=== PATIENT | female | born 1965 | race Caucasian/White ===

== ENCOUNTER 2024-04-11 14:04 | Emergency (ER) | payer OTHER, MEDICAID ==
[2024-04-11 14:48] VITALS: O2SAT 100
--- NOTE | 2024-04-11 15:42 | XRAY Report ---
PROCEDURE: Knee 4+V RT INDICATIONS: Trauma TECHNIQUE: 4 views of the knee(s) were acquired. COMPARISON: None. FINDINGS: Bones: No fractures or dislocations. No suspicious bony lesions. Soft tissues: No knee joint effusion. No suspicious soft tissue calcifications or masses. IMPRESSION: No acute bony abnormality. Reviewed by: Leonel Lopez MD on 04/11/2024 3:41 PM PDT Approved by: Leonel Lopez MD on 04/11/2024 3:41 PM PDT Station ID: [id number]
[2024-04-11] MEDS: ACETAMINOPHEN 500 MG TABLET PO STA (16:07)
[2024-04-11] MEDS: KETOROLAC 30 MG/ML VIAL IM STA (16:07)
[2024-04-11] MEDS: LIDOCAINE-EPINEPH-TETRACAINE 3 ML SYRINGE TOP STA (16:08)
--- NOTE | 2024-04-11 16:08 | XRAY Report ---
PROCEDURE: Shoulder 2+V RT INDICATIONS: FOOSH TECHNIQUE: 3 views of the shoulder were acquired. COMPARISON: None. FINDINGS: Bones: No fractures or dislocations. No suspicious bony lesions. Visualized ribs appear intact. A cromioclavicular joint space narrowing with osteophytosis. Soft tissues: No suspicious soft tissue calcifications. The visualized lungs are within normal limi ts. IMPRESSION: No acute bony abnormality. Reviewed by: Leonel Lopez MD on 04/11/2024 4:07 PM PDT Approved by: Leonel Lopez MD on 04/11/2024 4:07 PM PDT Station ID: [id number]
[2024-04-11] MEDS ORDERED: ceFAZolin 2 GM VIAL ONE (17:28)
--- NOTE | 2024-04-11 17:52 | ED Physician Documentation ---
PD HPI LOWER EXT INJURY - Stated complaint Stated Complaint: RT KNEE INJ - Chief complaint Chief Complaint: Trauma Ext - Additional information Additional information: 59-year-old female presents emergency department from walk-in clinic for right knee laceration. 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 She tried to catch herself with her right arm outstretched and fell directly onto her right knee. She has full range of motion of her right knee but significant pain she did not hit her head no loss of consciousness no nausea or vomiting.Bleeding is well-controlled she is unsure if she is up-to-date with her tetanus shot and is not on any blood thinners and not immunocompromise. PD PAST MEDICAL HISTORY - Past Medical History Past Medical History: Yes Cardiovascular: High cholesterol Respiratory: Sleep apnea, CPAP use Neuro: None Endocrine/Autoimmune: None GI: None BEACH LIFEGUARD: None : None HEENT: None Psych: None Musculoskeletal: Osteoarthritis Derm: None - Past Surgical History Past Surgical History: Yes General: Cholecystectomy Derm: Skin cancer surgery - Present Medications Home Medications: Ambulatory Orders Medication Instructions Recorded Confirmed Dextroamphetamine/Amphetamine 10 mg PO BID 04/11/24 [Adderall 10 mg Tablet] cephALEXin [Keflex] 500 mg PO Q6H 5 Days #20 cap 04/11/24 traZODone [Desyrel] 50 mg PO HS 04/11/24 - Allergies Allergies/Adverse Reactions: Allergies Allergy/AdvReac Type Severity Reaction Status Date / Time No Known Drug Allergies Allergy Verified 04/11/24 14:32 - Social History Does the pt smoke?: No Smoking Status: Former smoker Does the pt drink ETOH?: Yes Does the pt have substance abuse?: Yes Substance Use and Type: CBD oil / Products - Immunizations Immunizations are current?: Yes - POLST Patient has POLST: No PD ED PE NORMAL - Vitals Vital signs reviewed: Yes - General General: Alert and oriented X 3, No acute distress, Well developed/nourished - HEENT HEENT: Atraumatic, PERRL, EOMI - Back Back: No CVA TTP - Derm Derm: Other (Large laceration over right kneecap) - Extremities Extremities: No deformity, No tenderness to palpate, Normal ROM s pain, Other (Right upper extremity: Tenderness with abduction abduction no crepitus no deformity.) - Psych Psych: Normal mood - Free text exam Free text exam: Right upper extremity: Tenderness with abduction abduction no crepitus no deformity. Right knee: Full range of motion of right knee large laceration about 9 cm in length and 1 cm in width over right kneecap. Results - Vitals Vitals: Vital Signs - 24 hr 04/11/24 04/11/24 04/11/24 14:34 17:01 17:27 Temperature 36.9 C Heart Rate 80 Respiratory 18 16 17 Rate Blood Pressure 150/76 H O2 Saturation 100 04/11/24 18:58 Temperature Heart Rate 72 Respiratory 16 Rate Blood Pressure 140/77 H O2 Saturation 100 Oxygen O2 Source Room air - Rads (name of study) Right knee x-ray Relevant Findings:: Final report received, EMP independent interpretation of test, Other (No acute bony abnormality or fracture) Right shoulder x-ray Relevant Findings:: Final report received, EMP independent interpretation of test, Other (No acute bony abnormalities or findings.) Procedures - Laceration (location) right knee Length in cm: 9 Wound type: Irregular, Into subcut fat, Clean Neurovascular status: Sensory intact Anesthesia: LET, Marcaine 0.5% Wound preparation: Irrigated copiously NS, Wound explored, To the base, Multiple flaps aligned, Extensive undermining Skin layer closure: Nylon, Interrupted, Size #-0 - enter number (4-0), Sutures - enter # (10) Other: Patient tolerated well, No complications, Neurovascular intact, Dressing applied, Tetanus booster given PD Medical Decision Making - ED course ED course: 59-year-old female presents emergency department for right knee injury and right shoulder pain. X-rays were completed of right shoulder she has no obvious deformity. And x-rays confirm no bony abnormalities or findings.X-ray of her right knee was also complete for further evaluation and again no bony abnormalities or fractures visualized. The wound over her right knee is quite deep No evidence of violation of the joint capsule. See procedure note for further evaluation 10 sutures was placed over her right knee she was given 1 dose of IV Ancef here in the emergency department given how deep the wound is and prescription of Keflex sent to her preferred pharmacy and tetanus was updated. She was taught how to manage wound at home signs symptoms of infection to watch out for thick layer of bacitracin applied over right knee with bulky dressing. L&I paperwork filled out, L&I claim #[id number] Patient is safe for discharge at this time all questions answered Return precautions given prescription of Keflex sent to her preferred pharmacy. Departure - Departure Disposition: 01 Home, Self Care Clinical Impression: Laceration of right knee Qualifiers: Encounter type: initial encounter Qualified Code(s): S81.011A - Laceration without foreign body, right knee, initial encounter Instructions: ED Laceration Sure Close Prescriptions: cephALEXin [Keflex] 500 mg PO Q6H 5 Days #20 cap Comments: Come back for any signs of infection which would include: Redness, swelling, drainage, increased pain, or fevers. You can wash it soap and water. Keep it covered and moist with bacitracin ointment which is available over the counter; avoid neosporin. Follow-up with your Primary care provider or walk-in clinic in 14 days for suture removal. Forms: PCP List Discharge Date/Time: 04/11/24 19:06
[2024-04-11] MEDS: ceFAZolin (2G) 2 GM in SODIUM CHLORIDE 0.9% 100ML 100 ML IV STA (18:07)
[2024-04-11] MEDS: BACITRACIN ZINC OINT 1 PACKET TOP STA (18:16)
[2024-04-11] MEDS: TETANUS/DIPHTHERIA/PERTUSSIS 0.5 ML SYRINGE IM ONE (18:16)
[2024-04-11 19:03] VITALS: BP 140/77
== END 2024-04-11 19:06 | disposition home or self-care (01) ==
LOC: ED 14:04
DX: S81.011A Laceration without foreign body, right knee, initial encounter (principal); W20.8XXA Other cause of strike by thrown, projected or falling object, initial encounter; Y93.02 Activity, running; Y92.219 Unspecified school as the place of occurrence of the external cause; Y99.0 Civilian activity done for income or pay; Z87.891 Personal history of nicotine dependence
CPT/HCPCS: 1040M; 12004; 73030; 73564; 90471; 90715; 96365; 96372; 99284; A9270

== ENCOUNTER 2024-04-12 22:05 | Emergency (ER) | payer OTHER, MEDICAID ==
[2024-04-12 22:21] VITALS: BP 158/81; O2SAT 100
--- NOTE | 2024-04-12 22:26 | ED Physician Documentation ---
History of Present Illness - Stated complaint Stated Complaint: RT KNEE INFECTION - Chief complaint Chief Complaint: General - History obtained from History obtained from: Patient - Additonal information Additional information: She suffered a blunt force knee injury yesterday with a laceration and was seen here and given IV Ancef and subsequently Keflex. The wound was closed with sutures and x-rays were negative. She wants to make sure it does not look infected as she has some increased pain today. PD PAST MEDICAL HISTORY - Past Medical History Past Medical History: Yes Cardiovascular: High cholesterol Respiratory: Sleep apnea, CPAP use Neuro: None Endocrine/Autoimmune: None GI: None CLERICAL COORDINATOR: None : None HEENT: None Psych: None Musculoskeletal: Osteoarthritis Derm: None - Past Surgical History Past Surgical History: Yes General: Cholecystectomy Derm: Skin cancer surgery - Present Medications Home Medications: Ambulatory Orders Medication Instructions Recorded Confirmed Dextroamphetamine/Amphetamine 10 mg PO BID 04/11/24 [Adderall 10 mg Tablet] cephALEXin [Keflex] 500 mg PO Q6H 5 Days #20 cap 04/11/24 traZODone [Desyrel] 50 mg PO HS 04/11/24 - Allergies Allergies/Adverse Reactions: Allergies Allergy/AdvReac Type Severity Reaction Status Date / Time No Known Drug Allergies Allergy Verified 04/12/24 22:08 - Social History Does the pt smoke?: No Smoking Status: Never smoker Does the pt drink ETOH?: Yes Does the pt have substance abuse?: Yes - Immunizations Immunizations are current?: Yes - POLST Patient has POLST: No PD ED PE NORMAL - Vitals Vital signs reviewed: Yes - General General: Alert and oriented X 3, No acute distress - Back Back: No CVA TTP, No spinal TTP - Derm Derm: Normal color, Warm and dry - Extremities Extremities: Other (There is an anterior knee incision mostly horizontal closed with sutures that is clean dry and intact without evidence of dehiscence or cellulitis. No purulent drainage from anywhere.) - Neuro Neuro: Alert and oriented X 3, Normal speech Results - Vitals Vitals: Vital Signs - 24 hr 04/12/24 22:08 Temperature 36.5 C Heart Rate 77 Respiratory 16 Rate Blood Pressure 158/81 H O2 Saturation 100 Oxygen O2 Source Room air PD Medical Decision Making - ED course ED course: I discussed with her that I am actually fairly happy with the appearance of the knee at this point, albeit close watchful waiting and return precautions were discussed. Departure - Departure Disposition: 01 Home, Self Care Clinical Impression: Laceration of right knee Qualifiers: Encounter type: subsequent encounter Qualified Code(s): S81.011D - Laceration without foreign body, right knee, subsequent encounter Condition: Good Record reviewed to determine appropriate education?: Yes Instructions: ED Laceration Ext Sutr Stap Tape Comments: For pain you can take 4 ibuprofen (800 mg) every 6 hours, and/or 3 regular strength (325 mg) or 2 extra strength (500 mg) Tylenol every 6 hours. You can take these together. Ice, elevate. Gentle range of motion and stretching is appropriate. You can walk and bear weight on it but do not overdo it. Follow- up with your doctor in 2 weeks for suture removal. Return if worse.
== END 2024-04-12 22:29 | disposition home or self-care (01) ==
LOC: ED 22:05
DX: S81.011D Laceration without foreign body, right knee, subsequent encounter (principal); W22.8XXD Striking against or struck by other objects, subsequent encounter
CPT/HCPCS: 99281